=== PATIENT | female | born 1970 | race Caucasian/White ===

== ENCOUNTER → 2016-06-06 | Outpatient (CLI) | payer BC ==
[~2016-06-06] MED LIST: CYCL10TA45 PO; HYDR-3702 PO; METH4TAB11 PO; NAPR220T76 PO; ORPH100T3 PO; PRED20TA PO
--- NOTE | 2016-06-06 11:56 | Diagnostic Imaging Report ---
PROCEDURE: MR imaging of the brain with and without contrast. TECHNIQUE: Multiplanar, multisequence MR imaging of the brain was performed with and without contrast. INDICATION: Balance disturbance with vertigo. Right parietal headache. FINDINGS: No restricted diffusion is demonstrated to suggest ischemic process. There is no intracranial hemorrhage. There is no mass effect. Ventricles and cortical gyral pattern appear normal. FLAIR sequence shows a single focal area of increased signal in the subcortical distribution in the left parietal area measuring 5 mm. Cranial nerves appear normal. CP angles show no masses. Pituitary appears normal. Brainstem and optic chiasm are normal. Following IV contrast there is normal enhancement of the intracranial vessels with no abnormal enhancing lesions. The VII and VIII cranial nerves do not enhance. The cerebellum appears normal with no enhancing lesion. The mastoid air cells and paranasal sinuses are well aerated and clear. No evidence of intracranial aneurysm or arteriovenous malformation. IMPRESSION: 1. Single 5-mm subcortical white matter lesion in the left mid parietal region. No other white matter changes are seen. This is unlikely to represent a demyelinating disease. There is no hemosiderin deposit to suggest underlying arteriovenous anomaly. 2. The VII and VIII cranial nerves appear normal with clear mastoid air cells. Dictated by: Dictated on workstation # [id number]
== END ==
LOC: RAD 09:18
PROVIDERS: ATTEND Family Medicine
DX: R42 Dizziness and giddiness (principal); G44.89 Other headache syndrome
CPT/HCPCS: 70553; A9579

== ENCOUNTER → 2016-06-23 | Outpatient (CLI) | payer BC ==
--- NOTE | 2016-06-27 14:15 | Diagnostic Imaging Report ---
EXAMINATION: Ultrasound thyroid from 06/23/2016. TECHNIQUE: Multiple real-time grayscale images were obtained of the thyroid in various projections. INDICATION: Previous right thyroid biopsy. Multinodular thyroid gland. COMPARISON: 06/09/2014. FINDINGS: The right lobe measures 4.3 x 2.1 x 2.8 cm in size with the left lobe measuring 4.7 x 1.6 x 1.7 cm. Within the right lobe of the thyroid within its mid and extending into the inferior pole, there is a large heterogeneous lesion measuring 2.7 x 2 x 1.8 cm. This area previously measured 2.8 x 1.7 x 1.9 cm. Therefore, no significant interval change is appreciated. Just proximal to this large lesion, a smaller subcentimeter echogenic lesion is noted which measures 0.7 x 0.4 x 0.8 cm. There is a larger lesion within the superior pole over the right lobe which measures 1 x 1.1 x 1.1 cm and appears solid. This previously measured 1.3 x 1 x 1 cm. The left lobe is unremarkable with no measurable lesions appreciated. IMPRESSION: 1. Multiple heterogeneous lesions noted throughout the right lobe of the thyroid, not significantly changed in size or appearance, however for the most part, solid and heterogeneous with some associated vascularity. If not already performed, biopsy may be warranted to establish histologic characteristics. Dictated on workstation # [id number]
== END ==
LOC: RAD 14:18
PROVIDERS: ATTEND Otolaryngology
DX: E04.2 Nontoxic multinodular goiter (principal); E04.1 Nontoxic single thyroid nodule
CPT/HCPCS: 76536